=== PATIENT | male | born 1995 | race Caucasian/White ===

== ENCOUNTER 2022-06-26 18:20 | Emergency (ER) | payer OTHER ==
[~2022-06-26] VITALS: Ht 182.8 cm; Wt 104.3 kg
[~2022-06-26 18:20] MED LIST: NKHM
[2022-06-26 18:32] VITALS: BP 138/82
[2022-06-26] MEDS ORDERED: Motrin,Rufen800 MG PO (20:31)
[2022-06-26] MEDS ORDERED: METHOCARBAMOL500 M1 PO (20:31)
== END 2022-06-26 20:38 | disposition home or self-care (01) ==
LOC: ED 18:20
DX: S39.012A Strain of muscle, fascia and tendon of lower back, initial encounter (principal); S16.1XXA Strain of muscle, fascia and tendon at neck level, initial encounter; Z91.013 Allergy to seafood; V89.2XXA Person injured in unspecified motor-vehicle accident, traffic, initial encounter; Y93.89 Activity, other specified; Y92.89 Other specified places as the place of occurrence of the external cause; Y99.8 Other external cause status

== ENCOUNTER → 2023-11-07 | Outpatient (CLI) | payer OTHER ==
[~2023-11-07] MED LIST changes: +METHOCARBAMOL500 M1 PO; +Motrin,Rufen800 MG PO
[2023-11-07 09:20] LABS: BILIRUBIN Negative (Negative); BLOOD Negative (Negative); CLARITY Clear (Clear); COLOR Yellow (Yellow); GLUCOSE Negative (Negative); KETONE Negative (Negative); LEUKO ESTERASE Negative (Negative); NITRITE Negative (Negative); PH 5.5 (4.5-8.0); SPECIFIC GRAVITY >= 1.030 (1.001-1.030); UROBILINOGEN 0.2 E.U./dl (0.0-1.0)
[2023-11-07 09:20] LABS: BASO % 0.8 % (0.0-1.0); EOS # 0.1 10*3/uL (0.0-0.4); EOS % 2.3 % (1.0-4.0); HEMATOCRIT 43.8 % (42.0-52.0); LYMPH # 1.7 10*3/uL (1.3-4.4); LYMPH % 32.6 % (27.0-41.0); MEAN CELL VOLUME 83.7 fl (80.0-94.0); MEAN CORPUSCULAR HGB 27.5 pg (27.0-31.0); MEAN CORPUSCULAR HGB CONC 32.9 g/dl (33.0-37.0); MEAN PLATELET VOLUME 11.2 fl (9.6-12.3); MONO # 0.4 10*3/uL (0.1-1.0); MONO % 7.5 % (3.0-9.0); NEUT % 56.4 % (47.0-73.0); PLATELET COUNT AUTOMATED 202 10*3/uL (130-400); RED BLOOD COUNT 5.23 10*6/uL (4.50-5.90); RED CELL DISTRI WIDTH 12.9 % (0-14.5); RETICULOCYTE % 1.76 % (0.50-2.50); WHITE BLOOD COUNT 5.3 10*3/uL (4.8-10.8)
[2023-11-07 09:35] LABS: MUCOUS 2+
[2023-11-07 09:36] LABS: BACTERIA TRACE; EPITHELIAL CELLS 0-2; RBC 0-2 rbc/hpf (0-2); WBC 0-2 wbc/hpf (0-5)
[2023-11-07 09:55] LABS: ALKALINE PHOSPHATASE 98 U/L (46-116); BUN 15 mg/dl (9-23); CHLORIDE 107 mmol/L (98-107); CHOLESTEROL 232 mg/dL (<200); GAMMA GLUTAMYL TRANSPEPTIDASE 38 U/L (0-73); LDL CHOLESTEROL 155 mg/dL (9-159); POTASSIUM 3.8 mmol/L (3.4-5.1); SGPT/ALT 55 U/L (5-49); T3 UPTAKE 33.3 % (22.4-36.7); THYROXINE (T4) TOTAL 4.8 ug/dl (4.5-10.9); TOTAL PROTEIN 7.3 gm/dL (6.0-8.0); TRIGLYCERIDES 233 mg/dl (<150); URIC ACID 6.1 mg/dL (3.7-9.2)
[2023-11-07 10:31] LABS: VITAMIN D, 25-HYDROXY 28.5 ng/mL (30-100)
[2023-11-08 11:08] LABS: ANTI-DSDNA ANTIBODIES <1 IU/mL (0-9)
== END | disposition home or self-care (01) ==
LOC: LAB 08:50
PROVIDERS: ATTEND Family Medicine
DX: E55.9 Vitamin D deficiency, unspecified (principal); R79.89 Other specified abnormal findings of blood chemistry; R53.83 Other fatigue; E78.5 Hyperlipidemia, unspecified; R74.8 Abnormal levels of other serum enzymes

== ENCOUNTER → 2024-04-29 | Outpatient (CLI) | payer OTHER | END | disposition home or self-care (01) | LOC: RAD 11:37 | PROVIDERS: ATTEND Family Medicine | DX: G89.29 Other chronic pain (principal) ==

== ENCOUNTER 2024-07-12 14:07 | Observation (INO) | payer OTHER ==
[~2024-07-12] VITALS: Ht 182.8 cm; Wt 115.7 kg
[~2024-07-12 14:07] MED LIST changes: +AMOX-CLAV 875-1 EACH PO; +ARIPIPRAZOLE10 MG PO; +ASPIRIN CHILDRE81 MG PO; +ATORVASTATIN CA40 M1 PO; +CEFDINIR300 MG PO; +CLOPIDOGREL75 MG PO; +FLUOXETINE HCL40 MG PO; +METFORMIN HYD1000 MG PO; +OMEPRAZOLE40 MG PO; +PREDNISONE10 MG PO
[2024-07-12 14:15] VITALS: BP 139/72
[2024-07-12] MEDS ORDERED: SODIUM CHLORIDE 0.9% 1,000 ML IV ONE (14:25)
[2024-07-12 15:01] LABS: BUN 14 mg/dl (9-23); CHLORIDE 107 mmol/L (98-107)
[2024-07-12 15:05] LABS: ACT PARTIAL THROMBO TIME 24.4 SECONDS (20.0-32.1)
[2024-07-12 16:21] VITALS: BP 117/57
[2024-07-12] MEDS ORDERED: LURASIDONE HCL40 MG PO (16:22)
[2024-07-12] MEDS ORDERED: BISACODYL 5 MG TAB PO PRN (16:25)
[2024-07-12] MEDS ORDERED: Acetaminophen/Hydrocodone 5 MG/325 MG TABLET PO PRN (16:25)
[2024-07-12] MEDS ORDERED: Ondansetron Hydrochloride 4 MG/2 ML VIAL IV PRN (16:25)
[2024-07-12] MEDS ORDERED: Magnesium Hydroxide 30 ML UDC PO PRN (16:25)
[2024-07-12] MEDS ORDERED: ACETAMINOPHEN 650 MG SUPP R PRN (16:25)
[2024-07-12] MEDS ORDERED: BISACODYL 10 MG SUPP R PRN (16:25)
[2024-07-12] MEDS ORDERED: ACETAMINOPHEN 325 MG TAB PO PRN (16:25)
[2024-07-12] MEDS ORDERED: METFORMIN HYD1000 MG PO (16:27)
[2024-07-12 19:11] VITALS: BP 123/65
[2024-07-12] MEDS ORDERED: DEXTROSE 10 % IN WATER 250 ML IV PRN (22:30)
[2024-07-13 00:02] VITALS: BP 98/38
[2024-07-13 03:10] VITALS: BP 122/69
[2024-07-13] MEDS ORDERED: OMEPRAZOLE 20 MG CAP PO SCH (06:00)
[2024-07-13 06:34] VITALS: BP 116/62
[2024-07-13 06:39] LABS: BASO # 0.1 10*3/uL (0.0-0.1); BASO % 0.9 % (0.0-1.0); EOS # 0.2 10*3/uL (0.0-0.4); EOS % 2.3 % (1.0-4.0); MEAN CORPUSCULAR HGB 27.3 pg (27.0-31.0); MEAN CORPUSCULAR HGB CONC 32.1 g/dl (33.0-37.0); MEAN PLATELET VOLUME 11.5 fl (9.6-12.3); MONO # 0.5 10*3/uL (0.1-1.0); MONO % 7.3 % (3.0-9.0); NEUT # 3.4 10*3/uL (2.3-7.9); PLATELET COUNT AUTOMATED 196 10*3/uL (130-400); RED BLOOD COUNT 5.06 10*6/uL (4.50-5.90); RED CELL DISTRI WIDTH 13.7 % (0-14.5); WHITE BLOOD COUNT 6.4 10*3/uL (4.8-10.8)
[2024-07-13 07:02] LABS: VITAMIN D, 25-HYDROXY 29.2 ng/mL (30-100)
[2024-07-13] MEDS ORDERED: INSULIN LISPRO 1 UNIT/0.01 ML SQ SCH (07:30)
[2024-07-13] MEDS ORDERED: metFORMIN Hydrochloride 500 MG TAB PO SCH (07:30)
[2024-07-13] MEDS ORDERED: GADOTERATE MEGLUMINE 10 MMOL/20 ML VIAL IV ONE (09:11)
[2024-07-13] MEDS ORDERED: GADOTERATE MEGLUMINE 5 MMOL/10 ML VIAL IV ONE (09:11)
[2024-07-13] MEDS ORDERED: Enoxaparin Sodium 40 MG/0.4 ML SYR SC SCH (10:00)
[2024-07-13] MEDS ORDERED: ASPIRIN, CHEWABLE 81 MG TAB PO SCH (10:00)
[2024-07-13] MEDS ORDERED: FLUoxetine Hydrochloride 20 MG CAP PO SCH (10:00)
[2024-07-13] MEDS ORDERED: Clopidogrel Hydrogen Sulfate 75 MG TAB PO SCH (10:00)
[2024-07-13] MEDS ORDERED: ARIPiprazole 5 MG TAB PO SCH (10:00)
[2024-07-13] MEDS ORDERED: ATORVASTATIN CALCIUM 40 MG TABLET PO SCH (10:00)
[2024-07-13 11:09] LABS: ALKALINE PHOSPHATASE 94 U/L (46-116); BUN 15 mg/dl (9-23); CHLORIDE 108 mmol/L (98-107); CHOLESTEROL 132 mg/dL (<200); LDL CHOLESTEROL 70 mg/dL (9-159); POTASSIUM 4.1 mmol/L (3.4-5.1); SGPT/ALT 42 U/L (5-49); TRIGLYCERIDES 152 mg/dl (<150)
[2024-07-13 11:46] VITALS: BP 123/51
== END 2024-07-13 12:10 | disposition home or self-care (01) ==
LOC: ED 14:07 → EDHOLD 15:32
PROVIDERS: Emergency Medicine; Student in an Organized Health Care Education/Training Program; ADMIT Internal Medicine; ATTEND Internal Medicine
DX: R20.2 Paresthesia of skin (principal); E66.9 Obesity, unspecified; E87.20 Acidosis, unspecified; K21.9 Gastro-esophageal reflux disease without esophagitis; F43.10 Post-traumatic stress disorder, unspecified; G47.33 Obstructive sleep apnea (adult) (pediatric); E11.65 Type 2 diabetes mellitus with hyperglycemia; I63.211 Cerebral infarction due to unspecified occlusion or stenosis of right vertebral artery; Z79.84 Long term (current) use of oral hypoglycemic drugs; Z79.82 Long term (current) use of aspirin; Z79.899 Other long term (current) drug therapy

== ENCOUNTER 2024-10-24 01:46 | Emergency (ER) | payer OTHER ==
[~2024-10-24] VITALS: Ht 182.8 cm; Wt 119.7 kg
[~2024-10-24 01:46] MED LIST changes: +LURASIDONE HCL40 MG PO
[2024-10-24 01:51] VITALS: BP 136/91
== END 2024-10-24 05:04 | disposition home or self-care (01) ==
LOC: ED 01:46
DX: S02.2XXA Fracture of nasal bones, initial encounter for closed fracture (principal); S00.12XA Contusion of left eyelid and periocular area, initial encounter; S60.221A Contusion of right hand, initial encounter; R42 Dizziness and giddiness; E11.9 Type 2 diabetes mellitus without complications; K21.9 Gastro-esophageal reflux disease without esophagitis; E66.9 Obesity, unspecified; Z91.013 Allergy to seafood; Z79.82 Long term (current) use of aspirin; Z79.899 Other long term (current) drug therapy; Z79.84 Long term (current) use of oral hypoglycemic drugs; Z68.30 Body mass index [BMI] 30.0-30.9, adult; Z86.73 Personal history of transient ischemic attack (TIA), and cerebral infarction without residual deficits; Y04.0XXA Assault by unarmed brawl or fight, initial encounter; Y93.89 Activity, other specified; Y92.89 Other specified places as the place of occurrence of the external cause; Y99.8 Other external cause status

== ENCOUNTER → 2025-02-23 | Outpatient (CLI) | payer OTHER ==
[2025-02-23 12:11] LABS: BUN 11 mg/dl (9-23); LDL CHOLESTEROL 79 mg/dL (9-159); SGPT/ALT 57 U/L (5-49)
[2025-02-24 14:07] LABS: ANTI-DSDNA ANTIBODIES <1 IU/mL (0-9); ANTI-RNP ANTIBODIES <0.2 AI (0.0-0.9); ANTICHROMATIN ANTIBODIES <0.2 AI (0.0-0.9); ANTISCLERODERMA-70 AB <0.2 AI (0.0-0.9)
[2025-02-25 17:07] LABS: GLUTAMIC ACID DECARB AB <5.0 U/mL (0.0-5.0)
== END | disposition home or self-care (01) ==
LOC: LAB 11:05
PROVIDERS: Student in an Organized Health Care Education/Training Program; ATTEND Internal Medicine Endocrinology, Diabetes & Metabolism
DX: E11.9 Type 2 diabetes mellitus without complications (principal)

== ENCOUNTER 2025-04-06 04:00 | Emergency (ER) | payer SELFPAY ==
[~2025-04-06] VITALS: Ht 182.8 cm; Wt 104.3 kg
[2025-04-06 04:13] VITALS: BP 129/59
== END 2025-04-06 05:13 | disposition home or self-care (01) ==
LOC: ED 04:00
DX: U07.1 COVID-19 (principal); R19.7 Diarrhea, unspecified; M79.18 Myalgia, other site; R11.0 Nausea; Z91.013 Allergy to seafood